=== PATIENT | male | born 1975 | race Caucasian/White ===

== ENCOUNTER 2020-10-13 19:34 | Emergency (ER) | payer BC ==
[2020-10-13 19:46] VITALS: BP 115/86; PULSE 84; TEMP 98; BMI 26.6
[2020-10-13] MEDS ORDERED: KETOROLAC TROMETHAMINE 60 MG/2 ML VIAL IM ONE (20:20)
[2020-10-13] MEDS ORDERED: KETOROLAC TROMETHAMINE 60 MG/2 ML VIAL ONE (20:35)
== END 2020-10-13 20:49 | disposition home or self-care (01) ==
LOC: FER 19:34
PROC: 3E0233Z Introduction of Anti-inflammatory into Muscle, Percutaneous Approach (ICD-10-PCS; principal; 2020-10-13)
DX: S33.9XXA Sprain of unspecified parts of lumbar spine and pelvis, initial encounter (principal); S20.222A Contusion of left back wall of thorax, initial encounter
CPT/HCPCS: 72100-TC-FY; 99284-25